=== PATIENT | female | born 1970 | race African-American/Black ===

== ENCOUNTER 2021-03-02 16:59 | Emergency (ER) | payer SELFPAY ==
[~2021-03-02] VITALS: Ht 157.5 cm; Wt 50.1 kg
[~2021-03-02 16:59] MED LIST: CLON0.1T PO; DOCU-153 PO; ONDA4TAB10 SL; OXYC1TAB15 PO; PROM25TA10 PO
[2021-03-02 17:15] VITALS: BP 114/66
--- NOTE | 2021-03-02 18:06 | PHYS DOC ---
Past Medical History Past Medical History: Bronchitis, Other Additional Past Medical Histor: staph infection vein from drug use,HEROIN WITHDRAW Past Surgical History: Other Additional Past Surgical Histo: hemorrhoid, ovarian cyst, LT ankle Smoking Status: Current Every Day Smoker Alcohol Use: Occasionally Drug Use: Cocaine, Heroin General Adult EDM: Chief Complaint: DENTAL PROBLEM HPI: HPI: Patient is a 50 year old female presents to the emergency department with complaints of left ankle pain for the past 3 to 4 months. Patient states that she broke it, had a splint placed on it, did not follow-up with orthopedic surgery, patient states that her splint "fell off "a few months ago, patient states that she could no longer take the pain. Patient also complains of left rear upper molar dental pain for the past few months. Patient states she has not seen a dentist for her dental pain. Patient denies headaches, sore throat, chest pains, shortness of breath, abdominal pain, nausea, vomiting, diarrhea, patient denies any recent fever or chills. Patient states that she cannot afford to see an orthopedic surgeon or a dentist, she wishes to have her care taken care of in the emergency department today. Review of Systems: Review of Systems: 14 body systems of review of systems have been reviewed. See HPI for pertinent positives and negative responses, otherwise all other systems are negative, nonpertinent or noncontributory. Heart Score: C/O Chest Pain: No Risk Factors: Risk Factors: DM, Current or recent (<one month) smoker, HTN, HLP, family history of CAD, obesity. Risk Scores: Score 0 - 3: 2.5% MACE over next 6 weeks - Discharge Home Score 4 - 6: 20.3% MACE over next 6 weeks - Admit for Clinical Observation Score 7 - 10: 72.7% MACE over next 6 weeks - Early Invasive Strategies Allergies: Allergies: Allergies Coded Allergies Type Severity Reaction Last Updated Verified lorazepam Allergy Intermediate rash 10/17/20 No Physical Exam: PE: Constitutional: Well developed, well nourished, no acute distress, non-toxic appearance. 50-year-old female in no apparent distress. HENT: Normocephalic, atraumatic, bilateral external ears normal, oropharynx moist, no oral exudates, nose normal. Oropharynx pink, moist, no deep tissue infectious process appreciated, marked dental caries, multiple teeth in stages of tooth decay, no dental abscesses appreciated, no purulent drainage from teeth appreciated. No lymphadenopathy of the head or neck appreciated. Eyes: PERRLA, EOMI, conjunctiva normal, no discharge. Neck: Normal range of motion, no tenderness, supple, no stridor. Cardiovascular:Heart rate regular rhythm, no murmur, heart sounds S1-S2. Lungs & Thorax: Bilateral breath sounds clear to auscultation no adventitious lung sounds appreciated. Abdomen: Bowel sounds normal, soft, no tenderness, no masses, no pulsatile masses. Skin: Warm, dry, no erythema, no rash. Back: No tenderness, no CVA tenderness. Except for left ankle, patient complains of pain. No crepitus appreciated, no swelling appreciated, +2 dorsalis pedis/posterior tibial pulse. Distal cap refill is less than 2 seconds. Extremities: No tenderness, no cyanosis, no clubbing, ROM intact, no edema. Neurologic: Alert and oriented X 3, normal motor function, normal sensory function, no focal deficits noted. Psychologic: Affect normal, judgement normal, mood normal. Current Patient Data: Vital Signs: Vital Signs Date Time Temp Pulse Resp B/P (MAP) Pulse Ox O2 Delivery O2 Flow Rate FiO2 03/02/21 17:15 98.3 78 18 114/66 (82) 98 Room Air 98.3 EKG: EKG: [] Radiology/Procedures: Radiology/Procedures: PATIENT: BELGICA DEAN ACCOUNT: [id number] : 1970 LOCATION: ER AGE: 50 SEX: F EXAM STATUS: REG ER ORD. PHYSICIAN: NICOLE CHANEL APRN REASON: fall on 02/27, Recent Fx with surgical repair in 10/18 PROCEDURE: ANKLE LEFT 3V EXAMINATION: XR EXAM OF ANKLE_LEFT 3V CLINICAL HISTORY: Fall on 02/27, Recent Fx with surgical repair in 10/18 TECHNIQUE: XR EXAM OF ANKLE_LEFT 3V Number of Images/Views: 3 COMPARISON: 10/16/2020 FINDINGS: Healing fracture in the distal fibular metadiaphysis with bony bridging along the majority of the fracture plane. Displaced comminuted medial malleolus fracture remains in similar alignment with corticated fracture margins. No definitively visualized acute fracture. Lateral subluxation of the talus relative to the tibia, similar to prior study with interval development of heterogeneous lucencies and irregularity in the talar dome. Focal articular surface depression noted in the lateral talar dome on the oblique view. Persistent soft tissue swelling. IMPRESSION: Healing left distal fibular fracture with similar displaced comminuted medial malleolus fracture and lateral subluxation of the talus. New heterogeneity and irregularity in the talar dome with focal articular surface depression, incompletely evaluated. Electronically signed by: Ken Hernandez DO (03/02/2021 6:44 PM) [facility] DICTATED and SIGNED BY: KEN HERNANDEZ DO DATE: 03/02/21 [id number] 0 Course & Med Decision Making: Course & Med Decision Making Pertinent Labs and Imaging studies reviewed. (See chart for details) 50-year-old female, vital signs reviewed, presents emergency department concerning dental pain and left ankle pain. Physical examination concerning for possible bony abnormality of the left ankle, patient was originally seen here in September 2020, had her ankle reduced and an OCL splint was placed, patient was to follow-up with orthopedic surgery outpatient, patient did not follow-up, patient stated that she wore her splint until it fell off because she could not afford to see an orthopedic surgeon. Patient also has a marked dental caries, recommended patient see a dentist. Will start patient on Augmentin for dental caries, will prescribe 600 mg ibuprofen for pain. X-ray of left ankle read by house radiologist interpretation as follows:Healing left distal fibular fracture with similar displaced comminuted medial malleolus fracture and lateral subluxation of the talus. New heterogeneity and irre gularity in the talar dome with focal articular surface depression, incompletely evaluated. Discussed findings with patient, will place posterior OCL with crutches. Patient is amenable to this plan. ED nursing staff placed OCL posterior splint short leg to left lower extremity, crutches with instructions. Evaluation of OCL splint, splint in satisfactory position, patient remains neurovascular intact. Patient gave verbal understanding of discharge home instructions, antibiotic prescription use, ibuprofen prescription use, strict follow-up with orthopedic surgery, strict follow-up with dentist soon. Follow-up with primary care for ongoing aches and pains, return to ER precautions or concerns, patient had no further questions or concerns and was discharged home without incident. Dragon Disclaimer: Dragon Disclaimer: This electronic medical record was generated, in whole or in part, using a voice recognition dictation system. Departure Departure Impression: Primary Impression: Abnormal x-ray of extremity Additional Impression: Dental caries Disposition: HOME / SELF CARE / HOMELESS Condition: GOOD Referrals: NO PCP (PCP) SIXTO WALKER II, MD, JOHN N MD Patient Instructions: Ankle Fracture, Cast or Splint Care, Crutch Use, Dental Abscess Additional Instructions: You are seen in emergency today for left ankle pain and dental pain. As we discussed please follow-up with the dentist soon, I am starting you on Augmentin antibiotic for dental infection. I am prescribing you 600 mg Motrin for pain. As you stated, you did not follow-up with orthopedic surgery as recommended, this has most likely caused the changes and pain you are now experiencing in your left ankle. The x-ray shows new changes that require follow-up with orthopedic surgery soon. Your splint has been placed back on your lower extremity, the splint does not fix your problem, this is for comfort and stability of your broken bones. Please do not bear weight on the splint as it is not a "walking cast ", please use crutches. Please follow-up with an or thopedic surgeon as we discussed this week. Return to the emergency department for worsening symptoms or other concerns. EMERGENCY DEPARTMENT GENERAL DISCHARGE INSTRUCTIONS Thank you for coming to [facility] Emergency Department (ED) [place] [facility] and trusting us with you care. We trust that you had a positive experience in our Emergency Department. If you wish to speak to the department management, you may call the Director at [phone]. YOUR FOLLOW UP INSTRUCTIONS ARE FOLLOWS: 1. Do you have a private Doctor? If you do not have a private doctor, please ask for a resource list of physicians or clinics that may be able to assist you with follow up care. 2. The Emergency Physicain has interpreted your x-rays. The X-Ray specialist will also review them. If there is a change in the findings, you will be notified in 48 hours when at all possible. 3. A lab test or culture has been done, your results will be reviewed and you will be notified if you need a change in treatment. ADDITIONAL INSTRUCTIONS AND INFORMATION: 1. Your care today has been supervised by a physician who is specially trained in emergency care. Many problems require more than one evaluation for a complete diagnosis and treatment. We recommend that you schedule your follow up appointment as recommended to ensure complete treatment of you illness or injury. If you are unable to obtain follow up care and continue to have a problem, or if your condition worsens, we recommend that you return to the ED. 2. We are not able to safely determine your condition over the phone nor are we able to give sound medical advice over the phone. For these safety reasons, if you call for medical advice we will ask you to come to the ED for further evaluation. 3. If you have any questions regarding these discharge instructions please call the ED at [phone]. SAFETY INFORMATION: In the interest of safety, wellness, and injury prevention; we encourage you to wear your sealbelt, if you smoke; quite smoking, and we encourage family to use a protective helmet for bicycling and other sporting events that present an increased risk for head injury. IF YOUR SYMPTOMS WORSEN OR NEW SYMPTOMS DEVELOP, OR YOU HAVE CONCERNS ABOUT YOUR CONDITION; OR IF YOUR CONDITION WORSENS WHILE YOU ARE WAITING FOR YOUR FOLLOW UP APPOINTMENT; EITHER CONTACT YOUR PRIMARY CARE DOCTOR, THE PHYSICIAN WHOSE NAME AND NUMBER YOU WERE GIVEN, OR RETURN TO THE ED IMMEDIATELY. Scripts Ibuprofen (IBUPROFEN) 600 Mg Tablet 600 MG PO PRN Q6HRS PRN for INFLAMMATION, #20 TAB 0 Refills Prov: NICOLE CHANEL APRN 03/02/21 Amoxicillin/Potassium Clav (AUGMENTIN 875-125 TABLET) 1 Each Tablet 1 TAB PO BID for DENTAL INFECTION for 10 Days, #20 TAB 0 Refills Prov: NICOLE CHANEL APRN 03/02/21 NICOLE CHANEL APRN March 02, 2021 18:06
[2021-03-02] MEDS ORDERED: HYDROcodone/APAP 5/325MG 1 TAB TABLET PO ONE (18:15)
[2021-03-02] MEDS ORDERED: IBUPROFEN 200 MG TABLET. PO ONE (18:15)
--- NOTE | 2021-03-02 18:46 | RAD ---
EXAMINATION: XR EXAM OF ANKLE_LEFT 3V CLINICAL HISTORY: Fall on 02/27, Recent Fx with surgical repair in 10/18 TECHNIQUE: XR EXAM OF ANKLE_LEFT 3V Number of Images/Views: 3 COMPARISON: 10/16/2020 FINDINGS: Healing fracture in the distal fibular metadiaphysis with bony bridging along the majority of the fra cture plane. Displaced comminuted medial malleolus fracture remains in similar alignment with cortica veena fracture margins. No definitively visualized acute fracture. Lateral subluxation of the talus relative to the tibia, similar to prior study with interval developm ent of heterogeneous lucencies and irregularity in the talar dome. Focal articular surface depression noted in the lateral talar dome on the oblique view. Persistent soft tissue swelling. IMPRESSION: Healing left distal fibular fracture with similar displaced comminuted medial malleolus fracture and lateral subluxation of the talus. New heterogeneity and irregularity in the talar dome with focal articular surface depression, incompl etely evaluated. Electronically signed by: Ken Dang DO (03/02/2021 6:44 PM) DEJAN
[2021-03-02] MEDS ORDERED: IBUP-1007 PO (19:15)
[2021-03-02] MEDS ORDERED: AMOX1TAB61 PO (19:15)
== END 2021-03-02 19:40 | disposition home or self-care (01) ==
LOC: ER 16:59
DX: M25.572 Pain in left ankle and joints of left foot (principal); K02.9 Dental caries, unspecified; F17.200 Nicotine dependence, unspecified, uncomplicated; Z88.8 Allergy status to other drugs, medicaments and biological substances
CPT/HCPCS: 29515; 73610; 99283

== ENCOUNTER 2021-03-08 09:28 | Emergency (ER) | payer SELFPAY ==
[~2021-03-08] VITALS: Ht 165.1 cm; Wt 60.0 kg
[2021-03-08 09:28] VITALS: BP 163/86
[~2021-03-08 09:28] MED LIST changes: +AMOX1TAB61 PO; +IBUP-1007 PO
--- NOTE | 2021-03-08 12:08 | NUR ---
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
[2021-03-08] MEDS ORDERED: IV NORMAL SALINE 1000ML BAG 1,000 ML IV ONE (12:30)
[2021-03-08] MEDS ORDERED: PROCHLORPERAZINE 10 MG/2 ML VIAL. IV ONE (12:30)
--- NOTE | 2021-03-08 17:40 | EKG ---
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
--- NOTE | 2021-03-08 23:03 | ED.ADGEN ---
Past Medical History Past Medical History: Bronchitis, Other Additional Past Medical Histor: staph infection vein from drug use,HEROIN WITHDRAW Past Surgical History: Other Additional Past Surgical Histo: hemorrhoid, ovarian cyst, LT ankle Smoking Status: Current Every Day Smoker Alcohol Use: Occasionally Drug Use: Cocaine, Heroin General Adult EDM: Chief Complaint: SUBSTANCE ABUSE HPI: HPI: Patient is a 50 year old AA female brought to the emergency department via EMS from home. Her significant other called EMS because the patient had nausea, and vomiting secondary to heroin withdrawals. Patient states that she last snorted heroin in her left nostril yesterday. She reports that she does heroin daily and she also drinks alcohol. Patient states that she would like help for heroin addiction. She currently complains of generalized pain all over, she denies any chest pain, palpitations, abdominal pain, shortness of breath, diarrhea, headache, numbness, or tingling. Patient has a splint to the lower left extremity that she reports has been in place for the last 2 months. She denies any new injury to her lower left extremity. Patient currently rates her pain a 10 out of 10 on pain scale, she is noted to be drowsy and quickly falls asleep after verbal stimulation. Review of Systems: Review of Systems: Complete ROS is negative unless otherwise noted in HPI. Current Medications: Current Medications Medications (Trade) Dose Ordered Sig/Aura Start Time Stop Time Status Last Admin Dose Admin Prochlorperazine Edisylate (Compazine) 10 mg 1X ONCE 03/08/21 12:30 03/08/21 12:36 DC Sodium Chloride 1,000 ml @ 1,000 mls/hr 1X ONCE 03/08/21 12:30 03/08/21 13:29 DC Allergies: Allergies: Allergies Coded Allergies Type Severity Reaction Last Updated Verified lorazepam Allergy Intermediate rash 10/17/20 No Physical Exam: PE: See Above Constitutional: Well developed, well nourished, no acute distress, non-toxic appearance, appears fatigued. [] HENT: Normocephalic, atraumatic, bilateral external ears normal, nose normal, residue of white powder inside the left nare. [] Eyes: PERRLA, conjunctiva normal, no discharge. [] Neck: Normal range of motion, no stridor. [] Cardiovascular:Heart rate regular bradycardic rhythm Lungs & Thorax: Respirations even and unlabored, no retractions, no respiratory distress, lungs CTA Abdomen: soft, no tenderness Skin: Warm, dry, no erythema, no rash. [] Extremities: RLE: No cyanosis, ROM intact, no edema. LLE: Immobilized with splint/cast, cap refill less than 2 seconds Neurologic: Alert and oriented X 3, ambulates with steady gait, speech clear, no focal deficits noted. [] Psychologic: Affect normal, judgement normal, mood normal. [] Current Patient Data: Vital Signs: Vital Signs Date Time Temp Pulse Resp B/P (MAP) Pulse Ox O2 Delivery O2 Flow Rate FiO2 03/08/21 09:28 97.3 42 16 163/86 (111) 99 Room Air 97.3 EKG: EK-sinus bradycardia rate 41, no STEMI, read by Dr. Flores [] Heart Score: C/O Chest Pain: No Risk Scores: Score 0 - 3: 2.5% MACE over next 6 weeks - Discharge Home Score 4 - 6: 20.3% MACE over next 6 weeks - Admit for Clinical Observation Score 7 - 10: 72.7% MACE over next 6 weeks - Early Invasive Strategies Radiology/Procedures: Radiology/Procedures: [] Course & Med Decision Making: Course & Med Decision Making Pertinent Labs and Imaging studies reviewed. (See chart for details) 1307-the patient is upset, walks out of her room stating that we have done nothing for her. Nursing staff has been unable to obtain IV access. The patient refuses to go back into her room states that she wants to go home. Patient is alert to person, place, and situation. She is clinically sober and ambulates with a steady gait. Patient left with significant other through the main ER entrance. [] Dragon Disclaimer: Dragon Disclaimer: This electronic medical record was generated, in whole or in part, using a voice recognition dictation system. 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
== END 2021-03-08 13:12 | disposition left against medical advice (07) ==
LOC: ER 09:28
DX: R11.2 Nausea with vomiting, unspecified (principal); R10.84 Generalized abdominal pain; F17.200 Nicotine dependence, unspecified, uncomplicated; Z88.8 Allergy status to other drugs, medicaments and biological substances
CPT/HCPCS: 93005; 99284